=== PATIENT | male | born 2000 | race Caucasian/White ===

== ENCOUNTER → 2022-03-25 | Outpatient (CLI) | payer OTHER ==
[2022-03-25 11:22] LABS: PLATELET COUNT, AUTOMATED 190 10^3/uL (150-450)
[2022-03-25 11:32] LABS: INR 0.99; PARTIAL THROMBOPLASTIN TIME 32.4 SECONDS (25.9-37.0); PROTHROMBIN TIME 13.5 SECONDS (12.7-14.5)
[2022-03-25 12:35] LABS: COLLAGEN EPINEPHRINE 144 SECONDS (74-162)
== END ==
LOC: M LAB 10:58
PROVIDERS: ATTEND Physical Medicine & Rehabilitation
DX: M54.16 Radiculopathy, lumbar region (principal)